=== PATIENT | male | born 1945 | race Caucasian/White ===

== ENCOUNTER 2018-04-17 21:37 | Emergency (ER) | payer OTHER ==
[~2018-04-17] VITALS: Ht 172.7 cm; Wt 77.1 kg
[2018-04-17 21:46] VITALS: Ht 172.7 cm; Wt 77.1 kg
[2018-04-17 23:25] LABS: BASOPHIL % 0.5 % (0-2); PLATELET COUNT 223 x10^3mcL (130-400)
[2018-04-17 23:26] LABS: RED CELL DISTRIBUTION WIDTH 21.9 % (11.5-14.5)
[2018-04-17 23:32] LABS: CALCIUM 8.5 mg/dL (8.5-10.1); CHLORIDE SERUM 106 mmol/L (98-107); CREATININE SERUM 1.2 mg/dL (0.7-1.3); GFR1 > 60 mL/min; GLUCOSE SERUM 84 mg/dL (74-106); POTASSIUM SERUM 3.6 mmol/L (3.5-5.1); SODIUM SERUM 140 mmol/L (136-145)
[2018-04-17 23:39] LABS: ALKALINE PHOSPHATASE 78 U/L (46-116); ALT/SGPT 14 U/L (16-63); AST/SGOT 27 U/L (15-37); BILIRUBIN TOTAL 0.2 mg/dL (0.20-1.00)
[2018-04-17 23:40] LABS: ALBUMIN 3.1 g/dL (3.4-5.0)
[2018-04-18 00:22] LABS: ovalocyte/elliptocyte 1+; rbc morphology (normal/abnorm) ABNORMAL (NORMAL)
[2018-04-18 06:07] VITALS: BP 152/87
== END 2018-04-18 06:07 | disposition home or self-care (01) ==
LOC: ED 21:37
PROVIDERS: Emergency Medicine
DX: F10.129 Alcohol abuse with intoxication, unspecified (principal); R00.2 Palpitations; E11.9 Type 2 diabetes mellitus without complications
CPT/HCPCS: 36415; G0480

== ENCOUNTER 2018-04-20 17:06 | Emergency (ER) | payer OTHER ==
[~2018-04-20] VITALS: Ht 172.7 cm; Wt 71.7 kg
[2018-04-20 17:37] LABS: BASOPHIL % 1.2 % (0-2); PLATELET COUNT 236 x10^3mcL (130-400); RED CELL DISTRIBUTION WIDTH 22.1 % (11.5-14.5)
[2018-04-20 17:55] LABS: CALCIUM 8.2 mg/dL (8.5-10.1); CARBON DIOXIDE 21.7 mmol/L (21-32); CHLORIDE SERUM 105 mmol/L (98-107); CREATININE SERUM 0.7 mg/dL (0.7-1.3); GFR1 > 60 mL/min; GLUCOSE SERUM 112 mg/dL (74-106); POTASSIUM SERUM 3.5 mmol/L (3.5-5.1); SODIUM SERUM 140 mmol/L (136-145)
[2018-04-20 18:00] LABS: ALKALINE PHOSPHATASE 73 U/L (46-116); ALT/SGPT 13 U/L (16-63); AST/SGOT 26 U/L (15-37); BILIRUBIN TOTAL 0.2 mg/dL (0.20-1.00); TOTAL PROTEIN, SERUM 6.9 g/dL (6.4-8.2)
[2018-04-20 20:40] VITALS: BP 124/74
== END 2018-04-20 20:40 | disposition home or self-care (01) ==
LOC: ED 17:06
PROVIDERS: Emergency Medicine
DX: R53.1 Weakness (principal); F10.129 Alcohol abuse with intoxication, unspecified; E11.9 Type 2 diabetes mellitus without complications
CPT/HCPCS: 36415; G0480

== ENCOUNTER 2018-04-27 20:06 | Emergency (ER) | payer OTHER ==
[~2018-04-27] VITALS: Ht 165.1 cm; Wt 63.5 kg
[2018-04-27 20:11] VITALS: Ht 165.1 cm; Wt 63.5 kg
[2018-04-27 20:34] LABS: BASOPHIL % 0.6 % (0-2); PLATELET COUNT 272 x10^3mcL (130-400)
[2018-04-27 20:35] LABS: RED CELL DISTRIBUTION WIDTH 21.5 % (11.5-14.5)
[2018-04-27 20:47] LABS: ALBUMIN 3.5 g/dL (3.4-5.0); ALKALINE PHOSPHATASE 82 U/L (46-116); ALT/SGPT 23 U/L (16-63); AMYLASE 43 U/L (25-115); AST/SGOT 37 U/L (15-37); BILIRUBIN TOTAL 0.41 mg/dL (0.20-1.00); CALCIUM 8.6 mg/dL (8.5-10.1); CARBON DIOXIDE 23.9 mmol/L (21-32); CHLORIDE SERUM 96 mmol/L (98-107); GFR1 > 60 mL/min; GLUCOSE SERUM 114 mg/dL (74-106); LIPASE 215 IU/L (73-393); MAGNESIUM 1.8 mg/dL (1.8-2.4); POTASSIUM SERUM 3.7 mmol/L (3.5-5.1); SODIUM SERUM 131 mmol/L (136-145); TOTAL PROTEIN, SERUM 7.8 g/dL (6.4-8.2)
[2018-04-27 20:54] LABS: ovalocyte/elliptocyte 1+; rbc morphology (normal/abnorm) ABNORMAL (NORMAL)
[2018-04-28 00:45] VITALS: BP 144/77
== END 2018-04-28 00:38 | disposition home or self-care (01) ==
LOC: ED 20:06
PROVIDERS: Emergency Medicine
DX: F10.20 Alcohol dependence, uncomplicated (principal); E87.1 Hypo-osmolality and hyponatremia; I10 Essential (primary) hypertension; E11.9 Type 2 diabetes mellitus without complications
CPT/HCPCS: G0480; J3411; J3475; J3490; J7030

== ENCOUNTER 2018-09-17 11:59 | Inpatient (IN) | payer OTHER ==
[~2018-09-17] VITALS: Ht 172.7 cm; Wt 56.7 kg
[2018-09-17 13:13] LABS: BILIRUBIN TOTAL 0.61 mg/dL (0.20-1.00); CALCIUM 8.2 mg/dL (8.5-10.1); CARBON DIOXIDE 18.1 mmol/L (21-32); CREATININE SERUM 2.5 mg/dL (0.7-1.3); TOTAL PROTEIN, SERUM 6.8 g/dL (6.4-8.2)
[2018-09-17 13:17] LABS: POTASSIUM SERUM 2.9 mmol/L (3.5-5.1)
[2018-09-17 14:12] LABS: BASOPHIL % 0.1 % (0-2); PLATELET COUNT 342 x10^3mcL (130-400)
[2018-09-17 14:20] LABS: RED CELL DISTRIBUTION WIDTH 22.1 % (11.5-14.5)
[2018-09-17 14:35] LABS: rbc morphology (normal/abnorm) ABNORMAL (NORMAL)
[2018-09-17 16:02] LABS: MAGNESIUM 2.4 mg/dL (1.8-2.4); PHOSPHOROUS 4.4 mg/dL (2.5-4.9)
[2018-09-17 16:03] LABS: CHOLESTEROL/HDL RATIO 2.2
[2018-09-17 18:11] VITALS: BP 114/46
[2018-09-17 18:14] VITALS: Ht 172.7 cm; Wt 56.7 kg
[2018-09-17 20:32] VITALS: BP 144/60
[2018-09-17 20:51] VITALS: BP 130/59
[2018-09-18] VITALS (10 sets, daily range): BP systolic 128–162; BP diastolic 61–84
[2018-09-18 10:04] LABS: CALCIUM 7.7 mg/dL (8.5-10.1); CARBON DIOXIDE 24.3 mmol/L (21-32); CREATININE SERUM 1.8 mg/dL (0.7-1.3); MAGNESIUM 1.9 mg/dL (1.8-2.4); PHOSPHOROUS 2.9 mg/dL (2.5-4.9); POTASSIUM SERUM 3.9 mmol/L (3.5-5.1)
[2018-09-18 10:11] LABS: PLATELET COUNT 201 x10^3mcL (130-400)
[2018-09-18 10:19] LABS: BASOPHIL % 0 % (0-2); RED CELL DISTRIBUTION WIDTH 18.5 % (11.5-14.5)
[2018-09-18 16:54] LABS: CALCIUM 8.2 mg/dL (8.5-10.1); CARBON DIOXIDE 20.7 mmol/L (21-32); CREATININE SERUM 1.8 mg/dL (0.7-1.3)
[2018-09-19 02:14] VITALS: BP 144/55
[2018-09-19 03:20] LABS: microscopic required? YES; urine erythrocyte 2+ (NEGATIVE)
[2018-09-19 03:27] LABS: AMPHETAMINE QUAL UR NONE DETECTED (See below)
[2018-09-19 07:19] LABS: CALCIUM 8.3 mg/dL (8.5-10.1); CARBON DIOXIDE 26.9 mmol/L (21-32); CREATININE SERUM 1.5 mg/dL (0.7-1.3); MAGNESIUM 1.9 mg/dL (1.8-2.4)
[2018-09-19 07:21] LABS: POTASSIUM SERUM 2.8 mmol/L (3.5-5.1)
[2018-09-19 07:29] LABS: PLATELET COUNT 217 x10^3mcL (130-400); RED CELL DISTRIBUTION WIDTH 18.3 % (11.5-14.5)
[2018-09-19 09:32] VITALS: BP 134/65
[2018-09-19 13:30] LABS: BAND NEUTROPHIL 1 % (0-10); BASOPHIL 1 % (0-2); MONOCYTE 3 % (0-7); SEGMENTED NEUTROPHILS 88 % (37-75)
[2018-09-19 13:32] LABS: PLATELET MORPHOLOGY PLATELETS DECREASED; rbc morphology (normal/abnorm) ABNORMAL (NORMAL)
[2018-09-19 13:56] VITALS: BP 151/70
[2018-09-19 17:00] VITALS: BP 134/80
[2018-09-19 20:59] VITALS: BP 153/56
[2018-09-20 05:53] VITALS: BP 120/60
[2018-09-20 06:33] LABS: CARBON DIOXIDE 28.2 mmol/L (21-32); CHLORIDE SERUM 116 mmol/L (98-107); CREATININE SERUM 1.1 mg/dL (0.7-1.3); GFR1 > 60 mL/min; GLUCOSE SERUM 88 mg/dL (74-106); SODIUM SERUM 153 mmol/L (136-145)
[2018-09-20 06:46] LABS: POTASSIUM SERUM 2.8 mmol/L (3.5-5.1)
[2018-09-20 06:53] LABS: BASOPHIL % 0.2 % (0-2); PLATELET COUNT 218 x10^3mcL (130-400)
[2018-09-20 07:01] LABS: RED CELL DISTRIBUTION WIDTH 17.6 % (11.5-14.5)
[2018-09-20 08:46] VITALS: BP 164/66
[2018-09-20 13:31] VITALS: BP 160/73
[2018-09-20 18:19] VITALS: BP 140/73
[2018-09-20 20:41] VITALS: BP 133/63
[2018-09-21 05:22] VITALS: BP 145/67
[2018-09-21 07:06] LABS: CALCIUM 7.7 mg/dL (8.5-10.1); CARBON DIOXIDE 25.5 mmol/L (21-32); CHLORIDE SERUM 108 mmol/L (98-107); GFR1 > 60 mL/min; GLUCOSE SERUM 124 mg/dL (74-106); POTASSIUM SERUM 3.4 mmol/L (3.5-5.1); SODIUM SERUM 141 mmol/L (136-145)
[2018-09-21 08:01] LABS: BASOPHIL % 0.3 % (0-2); PLATELET COUNT 161 x10^3mcL (130-400)
[2018-09-21 08:03] LABS: RED CELL DISTRIBUTION WIDTH 18.9 % (11.5-14.5)
[2018-09-21 08:05] VITALS: BP 158/69
[2018-09-21 08:10] VITALS: BP 150/74
[2018-09-21] MEDS ORDERED: ZES10 PO (11:05)
[2018-09-21] MEDS ORDERED: PROTONIX20 MG (11:06)
[2018-09-21] MEDS ORDERED: FEROSUL325 M1 PO (11:09)
[2018-09-21 12:07] VITALS: BP 150/74
[2018-09-21 13:40] VITALS: BP 150/74
[2018-09-21 16:16] VITALS: BP 140/73
== END 2018-09-21 20:41 | DRG 917 ==
LOC: ED 11:59 → DU 15:01
PROVIDERS: Emergency Medicine; Internal Medicine; ADMIT Family Medicine
PROC: 30233N1 Transfusion of Nonautologous Red Blood Cells into Peripheral Vein, Percutaneous Approach (ICD-10-PCS; principal; 2018-09-17)
DX: T51.2X1A Toxic effect of 2-Propanol, accidental (unintentional), initial encounter (principal); K29.01 Acute gastritis with bleeding; G92 Toxic encephalopathy; N17.0 Acute kidney failure with tubular necrosis; D62 Acute posthemorrhagic anemia; E87.1 Hypo-osmolality and hyponatremia; E44.0 Moderate protein-calorie malnutrition; Z68.1 Body mass index [BMI] 19.9 or less, adult; E87.6 Hypokalemia; F10.20 Alcohol dependence, uncomplicated; Z53.29 Procedure and treatment not carried out because of patient's decision for other reasons; Y92.009 Unspecified place in unspecified non-institutional (private) residence as the place of occurrence of the external cause
CPT/HCPCS: 97116-GP; 97530-GP; C9113; G0480; J1200; J1610; J2250; J2310; J2405; J3010; J3480; J3490; J7030; J7040; P9016; Q0092; Q0163